=== PATIENT | male | born 1975 | race Caucasian/White ===

== ENCOUNTER 2017-02-17 22:50 | Emergency (ER) | payer SELFPAY ==
[2017-02-17 22:56] VITALS: BP 154/77; PULSE 90; TEMP 98; BMI 23.7
--- NOTE | 2017-02-17 23:52 | PDOC ---
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 Patient complaining of pain moderate worse with movement alleviated by rest no fevers no streaking red lines no past medical history ROS: A complete review of 10 out of 10 review of systems is taken and is negative apart from what is previously mentioned below and in the HPI. - Physicial Exam PE: 02/18/17 00:49 Vitals: Triage Vital signs reviewed General Appearance: no acute distress, well nourished well developed, Head: Atraumatic, Extremities: Full range of motion to all extremities, no pain with passive range of motion. no cyanosis, clubbing, or edema Skin: Warm and dry, 3 cm area of redness to left elbow. No lymphangitic spread. Neuro:Strength intact to all extremities, Sensation intact to all extremities, gait normal Psych: normal mood, normal affect - Medical Decision Making 02/18/17 00:50 Patient well-appearing young healthy no past medical history no pain with passive range of motion presents with cellulitis to elbow. Very low concern for joint infection appears very superficial and examination there is no systemic symptoms such as fever or chills rigors. There is no lymphangitic spread on examination Given early cellulitis in a otherwise healthy gentleman patient is a good candidate for oral antibiotics with close follow-up. We have arranged for the patient follow-up in her clinic in 1-2 days. He'll return to the ED for any fevers chills spreading redness fever streaking red lines or for any concerns.
[2017-02-17] MEDS ORDERED: DOXYCYCLINE HYCLATE 100 MG CAPSULE PO ONE (23:59)
--- NOTE | 2017-02-18 | PDOC ---
History of Present Illness - General Chief Complaint: Wound Infection Stated Complaint: PAIN Time Seen by Provider: 02/17/17 23:14 - History of Present Illness Initial Comments: 02/17/17 23:51 41 yo M with h/o recurrent cellulitis who presents with left elbow pain and redness. Pt. reports increased L elbow warmth, pain, and redness this AM. 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 Also reports scab formation at center of left elbow attribute dto possible scratching week ago. Reports increased pain with active ROM. No elbow trauma, fevers, chills, SOB, chest pain. Denies recent hospital encounters. H/o allergy to Penicillin. Has attempted OTC NSAID. Denies h/o NIDDM, although he does not have PCP and no primary care f/u in years. Past History - Past Medical History Allergies/Adverse Reactions: Allergies Allergy/AdvReac Type Severity Reaction Status Date / Time Penicillins Allergy Verified 02/17/17 22:53 Home Medications: Ambulatory Orders Doxycycline Hyclate 100 mg PO BID #13 capsule 02/18/17 - Suicide/Smoking/Psychosocial Hx Smoking History: Current every day smoker Have you smoked in the past 12 months: No Number of Cigarettes Smoked Daily: 20 Information on smoking cessation initiated: No Hx Alcohol Use: No Drug/Substance Use Hx: No Substance Use Type: Marijuana Review of Systems - Review of Systems Comments:: 02/18/17 00:28 GENERAL/CONSTITUTIONAL: No fever or chills. No weakness. HEAD, EYES, EARS, NOSE AND THROAT: No change in vision. No ear pain or discharge. No sore throat.- CARDIOVASCULAR: No chest pain or shortness of breath RESPIRATORY: No cough, wheezing, or hemoptysis. GASTROINTESTINAL: No nausea, vomiting, diarrhea or constipation. GENITOURINARY: No dysuria, frequency, or change in urination. MUSCULOSKELETAL: + Right elbow redness, and pain. No neck or back pain. SKIN: No rash NEUROLOGIC: No headache, vertigo, loss of consciousness, or change in strength/ sensation. ENDOCRINE: No increased thirst. No abnormal weight change HEMATOLOGIC/LYMPHATIC: No anemia, easy bleeding, or history of blood clots. ALLERGIC/IMMUNOLOGIC: No hives or skin allergy. *Physical Exam - Vital Signs Last Vital Signs Temp Pulse Resp BP Pulse Ox 98.0 F 90 18 154/77 100 02/17/17 22:54 02/17/17 22:54 02/17/17 22:54 02/17/17 22:54 02/17/17 22:54 - Physical Exam Comments: 02/18/17 00:29 GENERAL: Awake, alert, and fully oriented, in no acute distress HEAD: No signs of trauma, normocephalic, atraumatic EYES: PERRLA, EOMI, sclera anicteric, conjunctiva clear ENT: hearing grossly normal, nares patent, oropharynx clear without exudates. Moist mucosa NECK: Normal ROM, supple, no lymphadenopathy, JVD, or masses LUNGS: No distress, speaks full sentences, clear to auscultation bilaterally HEART: Regular rate and rhythm, normal S1 and S2, no murmurs, rubs or gallops, peripheral pulses normal and equal bilaterally. EXTREMITIES : Well demarcated, Left elbow with circumferential, non fluctuant, indurated, blanching, area of warmth, and erythema.Painful to palptation. Endorses pain of left elbow with active ROM. Minimial to no pain of left elbow with passive ROM. Absent linear streaking of cellulitc area. Normal inspection, Normal range of motion, no edema. No clubbing or cyanosis. Palpable and symmetric UE peripheral pulses. central scab/punctum present in center of erythema of elbow. SKIN: Warm, Dry, normal turgor, no rashes or lesions noted. Medical Decision Making - Medical Decision Making 02/18/17 00:32 41 yo M with h/o recurrent cellulitis who presents with left elbow pain, warmth , swelling and redness of 12 hours duration. 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 Reports increased pain with active ROM, and minimal pain on passive range of motion limiting concern for osteomyelitis in setting of no h/o NIDDM or systemic symptoms/fevers. On physical exam area is well circumscribed, with no evidence of lymphangitic spread. Less likely it is erysipelas. Absent fluctuance with low suspicion of abscess. Most likely uncomplicated cellulitis of elbow in otherwise healthy adult male. Has H/o allergy to Penicillin. ED Course: Glucose POC - 109 Patient given one dose of oral doxycycline in ED and advised to f/u outpatient [facility] clinic with strict return precautions. Advised to utilize warm compress Q 20 minutes, and advil BID. *DC/Admit/Observation/Transfer Diagnosis at time of Disposition: Cellulitis Qualifiers: Site of cellulitis: other site Qualified Code(s): L03.818 - Cellulitis of other sites - Discharge Dispostion Disposition: HOME Admit: No - Prescriptions Prescriptions: Doxycycline Hyclate 100 mg PO BID #13 capsule - Patient Instructions Printed Discharge Instructions: DI for Cellulitis -- Adult Additional Instructions: Please return to clinic if you experience any streaking of the area, fevers/ chills, bone pain, or increased/expanding redness/swelling. Advise to apply warm compress to area every 20 minutes in the following 2 days. Please take doxycycline two times a day for 7 days. Return to [place] [phone] in two days. Take Aleve 2 pills twice a day for pain control. - Attestations Physician Attestion: 02/18/17 00:10 I attest to the information provided in this note.
[2017-02-18] MEDS ORDERED: DOXYCYCLINE HYCLATE 100 MG CAPSULE PO ONE (00:09)
== END 2017-02-18 01:26 | disposition home or self-care (01) ==
LOC: JER 22:50
DX: L03.113 Cellulitis of right upper limb (principal); F17.210 Nicotine dependence, cigarettes, uncomplicated
CPT/HCPCS: 99281-25